=== PATIENT | male | born 1960 | race Caucasian/White ===

== ENCOUNTER 2023-03-24 12:20 | Inpatient (IN) | payer OTHER ==
[~2023-03-24] VITALS: Ht 172.7 cm; Wt 89.9 kg
[2023-03-24 12:23] VITALS: BP 134/55
[2023-03-24 13:13] LABS: BASO % 0.3 % (0.0-1.0); EOS # 0.3 10*3/uL (0.0-0.4); EOS % 5.4 % (1.0-4.0); HEMATOCRIT 38.2 % (42.0-52.0); LYMPH # 1.3 10*3/uL (1.3-4.4); LYMPH % 21.4 % (27.0-41.0); MEAN CELL VOLUME 90.7 fl (80.0-94.0); MEAN CORPUSCULAR HGB CONC 30.9 g/dl (33.0-37.0); MEAN PLATELET VOLUME 10.2 fl (9.6-12.3); MONO # 0.6 10*3/uL (0.1-1.0); MONO % 9.6 % (3.0-9.0); NEUT # 3.8 10*3/uL (2.3-7.9); NEUT % 63.1 % (47.0-73.0); PLATELET COUNT AUTOMATED 261 10*3/uL (130-400); RED BLOOD COUNT 4.21 10*6/uL (4.50-5.90); WHITE BLOOD COUNT 6.1 10*3/uL (4.8-10.8)
[2023-03-24] MEDS ORDERED: TYLENOL EXTRA500 MG PO (14:07)
[2023-03-24] MEDS ORDERED: VITAMIN C500 M4 PO (14:08)
[2023-03-24] MEDS ORDERED: CELEBREX100 MG PO (14:09)
[2023-03-24] MEDS ORDERED: CALCIUM + VIT1 EACH PO (14:09)
[2023-03-24] MEDS ORDERED: METHOCARBAMOL500 M1 PO (14:10)
[2023-03-24] MEDS ORDERED: NEURONTIN100 MG PO (14:10)
[2023-03-24] MEDS ORDERED: OXYCODONE HCL10 M1 PO (14:11)
[2023-03-24] MEDS ORDERED: SENNA8.6 MG PO (14:13)
[2023-03-24] MEDS ORDERED: MIRALAX119 GM PO (14:13)
[2023-03-24 14:19] LABS: ALKALINE PHOSPHATASE 124 U/L (46-116); BUN 15 mg/dl (9-23); CHLORIDE 105 mmol/L (98-107); POTASSIUM 3.9 mmol/L (3.4-5.1); SGPT/ALT 26 U/L (10-49); TOTAL PROTEIN 6.1 gm/dL (6.0-8.0)
[2023-03-24 15:32] VITALS: BP 111/58
[2023-03-24 16:28] VITALS: BP 114/63
[2023-03-24 17:50] VITALS: BP 139/67
[2023-03-24 20:00] VITALS: BP 121/66
[2023-03-25] VITALS: BP 137/78
[2023-03-25 06:21] LABS: BASO % 0.5 % (0.0-1.0); EOS # 0.3 10*3/uL (0.0-0.4); EOS % 4.6 % (1.0-4.0); HEMATOCRIT 41.1 % (42.0-52.0); LYMPH # 1.4 10*3/uL (1.3-4.4); LYMPH % 22.4 % (27.0-41.0); MEAN CELL VOLUME 90.1 fl (80.0-94.0); MEAN CORPUSCULAR HGB 27.9 pg (27.0-31.0); MEAN CORPUSCULAR HGB CONC 30.9 g/dl (33.0-37.0); MEAN PLATELET VOLUME 10.7 fl (9.6-12.3); MONO # 0.6 10*3/uL (0.1-1.0); MONO % 9.1 % (3.0-9.0); NEUT % 63.2 % (47.0-73.0); PLATELET COUNT AUTOMATED 273 10*3/uL (130-400); RED BLOOD COUNT 4.56 10*6/uL (4.50-5.90); WHITE BLOOD COUNT 6.3 10*3/uL (4.8-10.8)
[2023-03-25 06:24] LABS: ACT PARTIAL THROMBO TIME 29.1 SECONDS (20.0-32.1)
[2023-03-25 06:38] LABS: ALKALINE PHOSPHATASE 129 U/L (46-116); BUN 17 mg/dl (9-23); CHLORIDE 103 mmol/L (98-107); CHOLESTEROL 173 mg/dL (<200); FREE T4 1.14 ng/dl (0.89-1.76); LDL CHOLESTEROL 105 mg/dL (9-159); POTASSIUM 4.1 mmol/L (3.4-5.1); SGPT/ALT 28 U/L (10-49); THYROID STIM HORMONE (HS) 1.877 uIU/ml (0.550-4.780); TOTAL PROTEIN 6.3 gm/dL (6.0-8.0); TRIGLYCERIDES 153 mg/dl (<150)
[2023-03-25 08:00] VITALS: BP 122/70
[2023-03-25 12:00] VITALS: BP 126/61
[2023-03-25 16:00] VITALS: BP 114/61
[2023-03-25 20:00] VITALS: BP 131/62
[2023-03-26] VITALS: BP 118/73
[2023-03-26 08:00] VITALS: BP 120/71
[2023-03-26 12:00] VITALS: BP 116/69
[2023-03-26 16:00] VITALS: BP 120/68
[2023-03-26 20:00] VITALS: BP 122/50
[2023-03-27] VITALS: BP 119/71
[2023-03-27 08:00] VITALS: BP 126/64
[2023-03-27 12:00] VITALS: BP 111/71
[2023-03-27 16:00] VITALS: BP 116/66
[2023-03-27 20:00] VITALS: BP 117/49
[2023-03-28] VITALS: BP 128/74
[2023-03-28 08:00] VITALS: BP 147/82
[2023-03-28 12:00] VITALS: BP 146/80
[2023-03-28 16:00] VITALS: BP 120/70; BP 136/76
[2023-03-28 20:00] VITALS: BP 137/67
[2023-03-29] VITALS: BP 122/65
[2023-03-29 08:00] VITALS: BP 129/66
[2023-03-29 12:00] VITALS: BP 144/60
[2023-03-29 16:00] VITALS: BP 126/71
[2023-03-29 20:00] VITALS: BP 128/68
[2023-03-30] VITALS: BP 112/67
[2023-03-30 08:00] VITALS: BP 129/68
[2023-03-30 12:00] VITALS: BP 134/69
[2023-03-30] MEDS ORDERED: OXYCODONE HCL10 M1 PO (13:45)
[2023-03-30] MEDS ORDERED: NEURONTIN100 MG PO (13:45)
== END 2023-03-30 16:00 | DRG 556 ==
LOC: ED 12:20 → 4E 17:38 → EDHOLD 17:38 → 4E 17:52
PROVIDERS: Internal Medicine; Student in an Organized Health Care Education/Training Program; ADMIT Internal Medicine; ATTEND Internal Medicine
PROC: 8E0YXY8 Suture Removal from Lower Extremity (ICD-10-PCS; principal; 2023-03-24)
DX: R26.2 Difficulty in walking, not elsewhere classified (principal); D64.9 Anemia, unspecified; E66.9 Obesity, unspecified; E78.00 Pure hypercholesterolemia, unspecified; E78.1 Pure hyperglyceridemia; M79.604 Pain in right leg; M79.605 Pain in left leg; Z88.5 Allergy status to narcotic agent; Z79.1 Long term (current) use of non-steroidal anti-inflammatories (NSAID); Z79.899 Other long term (current) drug therapy; Z48.02 Encounter for removal of sutures; Z87.81 Personal history of (healed) traumatic fracture

== ENCOUNTER → 2023-05-16 | Outpatient (CLI) | payer OTHER ==
[~2023-05-16] MED LIST: CALCIUM + VIT1 EACH PO; CELEBREX100 MG PO; METHOCARBAMOL500 M1 PO; MIRALAX119 GM PO; NEURONTIN100 MG PO; OXYCODONE HCL10 M1 PO; SENNA8.6 MG PO; TYLENOL EXTRA500 MG PO; VITAMIN C500 M4 PO
== END | disposition home or self-care (01) ==
LOC: ORTHO 01:23
PROVIDERS: ATTEND Orthopaedic Surgery
DX: Z87.81 Personal history of (healed) traumatic fracture (principal)

== ENCOUNTER → 2023-06-27 | Outpatient (CLI) | payer OTHER | END | disposition home or self-care (01) | LOC: ORTHO 01:24 | PROVIDERS: ATTEND Orthopaedic Surgery | DX: S82.001A Unspecified fracture of right patella, initial encounter for closed fracture (principal); M81.0 Age-related osteoporosis without current pathological fracture; Z87.81 Personal history of (healed) traumatic fracture; X58.XXXA Exposure to other specified factors, initial encounter; Y93.89 Activity, other specified; Y92.89 Other specified places as the place of occurrence of the external cause; Y99.8 Other external cause status ==